=== PATIENT | female | born 1950 | race African-American/Black ===

== ENCOUNTER 2016-10-12 18:20 | Inpatient (IN) | payer MEDICARE, MEDICAID ==
[~2016-10-12] VITALS: Ht 166.4 cm; Wt 106.1 kg
[~2016-10-12 18:20] MED LIST: ATENOLOL; ATROVASTIN; GABA-531 PO; HYDR-519 PO; IBRANCE PO; LETROZOLE; NIFEDIPINE; VALIUM PO
[2016-10-12 20:00] VITALS: BP_SYST 108; BP_DIAS 50; BP_DIAS 65
[2016-10-12] MEDS ORDERED: MAGNESIUM/ALUMINUM HYDROXIDE/SIMETHICONE 30ML UDC PO PRN (21:15)
[2016-10-12] MEDS ORDERED: ACETAMINOPHEN 650MG/20.3ML UDC PO PRN (21:15)
[2016-10-12] MEDS ORDERED: IPRATROPIUM/ALBUTEROL 0.5-3(2.5)MG/3ML NEB HHN PRN (21:15)
[2016-10-12] MEDS ORDERED: NA PHOS,M-B/NA PHOS,DI-BA ENEMA 118ML PR PRN (21:15)
[2016-10-12] MEDS ORDERED: BISACODYL 5MG TABLET PO PRN (21:15)
[2016-10-12] MEDS ORDERED: CLONIDINE 0.1MG TABLET PO PRN (21:15)
[2016-10-12] MEDS ORDERED: DIPHENHYDRAMINE 25MG CAPSULE PO PRN (21:15)
[2016-10-12] MEDS ORDERED: GUAIFENESIN 200MG/10ML SUGAR FREE UDC PO PRN (21:15)
[2016-10-12] MEDS ORDERED: ONDANSETRON HCL 4MG TABLET PO PRN (21:15)
[2016-10-12] MEDS: GABAPENTIN 300MG CAPSULE PO SCH (23:16)
[2016-10-12] MEDS: ALPRAZOLAM 0.5 MG TABLET PO PRN (23:16)
[2016-10-13] VITALS: BP 110/68
[2016-10-13] MEDS: GABAPENTIN 300MG CAPSULE PO SCH ×3 (05:42→21:43)
[2016-10-13 08:00] VITALS: BP 107/70
[2016-10-13] MEDS: ASPIRIN 81MG EC TABLET PO SCH (08:29)
[2016-10-13] MEDS: DOCUSATE SODIUM 250MG CAPSULE PO SCH (08:29)
[2016-10-13] MEDS: MORPHINE SULFATE 30MG TABLET SR PO SCH ×2 (08:30→21:01)
[2016-10-13] MEDS: NIFEDIPINE XL 90MG TAB PO SCH (08:30)
[2016-10-13] MEDS: LETROZOLE 2.5MG XX SCH (08:31)
[2016-10-13] MEDS: IBRANCE XX SCH (08:31)
[2016-10-13 16:04] LABS: BASOPHILS % 0.2 % (0.0-2.0); EOSINOPHILS % 13.3 % (0.0-5.0); HEMOGLOBIN. 10.7 g/dL (12.0-16.0); LYMPHOCYTES % 27.8 % (20.0-50.0); MEAN CORPUSCULAR HEMOGLOBIN 32.7 pg (28.0-32.0); MEAN CORPUSCULAR VOLUME 98.2 fL (81.0-99.0); MEAN PLATELET VOLUME 8.3 fl (7.4-10.4); MONOCYTES % 7.1 % (2.0-8.0); NEUTROPHILS % 51.6 % (40.0-76.0); PLATELET 328 x1000/uL (130-400); RED BLOOD CELL COUNT 3.26 mill/uL (4.2-5.4); RED CELL DISTRIBUTION WIDTH 17.5 % (11.6-14.6)
[2016-10-13 16:08] LABS: PROTHROMBIN TIME 10.7 sec (9.4-11.6)
[2016-10-13 16:30] LABS: CARBON DIOXIDE 25 mEq/L (21-32); CHLORIDE 105 mEq/L (98-107)
[2016-10-13 20:00] VITALS: BP 133/55
[2016-10-13] MEDS: IPRATROPIUM/ALBUTEROL 0.5-3(2.5)MG/3ML NEB HHN SCH (20:41)
[2016-10-13] MEDS: ENOXAPARIN 30MG/0.3ML SYR SUBCUT SCH (21:02)
[2016-10-14] MEDS: IPRATROPIUM/ALBUTEROL 0.5-3(2.5)MG/3ML NEB HHN SCH ×4 (02:25→20:50)
[2016-10-14] MEDS: GABAPENTIN 300MG CAPSULE PO SCH ×3 (05:32→21:19)
[2016-10-14 06:13] LABS: MEAN CORPUSCULAR HEMOGLOBIN 32.7 pg (28.0-32.0); MEAN CORPUSCULAR VOLUME 98.6 fL (81.0-99.0); MEAN PLATELET VOLUME 8.1 fl (7.4-10.4); PLATELET 343 x1000/uL (130-400); RED BLOOD CELL COUNT 3.35 mill/uL (4.2-5.4)
[2016-10-14 06:16] LABS: CHLORIDE 106 mEq/L (98-107)
[2016-10-14 06:27] LABS: VITAMIN B12 SERUM 418 pg/mL (211-911)
[2016-10-14 06:30] LABS: CARBON DIOXIDE 24 mEq/L (21-32)
[2016-10-14 08:00] VITALS: BP 95/49
[2016-10-14 08:20] VITALS: BP 147/65
[2016-10-14] MEDS: DOCUSATE SODIUM 250MG CAPSULE PO SCH (08:22)
[2016-10-14] MEDS: ENOXAPARIN 30MG/0.3ML SYR SUBCUT SCH ×2 (08:23→21:16)
[2016-10-14] MEDS: ASPIRIN 81MG EC TABLET PO SCH (08:23)
[2016-10-14] MEDS: MORPHINE SULFATE 30MG TABLET SR PO SCH ×2 (08:24→21:00)
[2016-10-14] MEDS: NIFEDIPINE XL 90MG TAB PO SCH (08:24)
[2016-10-14 10:38] LABS: PLATELET ESTIMATE NORMAL
[2016-10-14] MEDS: IBRANCE XX SCH (12:37)
[2016-10-14] MEDS: ALPRAZOLAM 0.5 MG TABLET PO PRN (12:45)
[2016-10-14] MEDS ORDERED: GABAPENTIN 100MG CAPSULE PO SCH (14:00)
[2016-10-14] MEDS: LETROZOLE 2.5MG XX SCH (16:35)
[2016-10-14 20:00] VITALS: BP 111/51
[2016-10-14] MEDS: MIRTAZAPINE 15MG TABLET PO SCH (21:15)
[2016-10-15] MEDS: IPRATROPIUM/ALBUTEROL 0.5-3(2.5)MG/3ML NEB HHN SCH ×4 (02:20→21:05)
[2016-10-15] MEDS ORDERED: ALPRAZOLAM 0.5 MG TABLET PO PRN (05:15)
[2016-10-15] MEDS: GABAPENTIN 300MG CAPSULE PO SCH ×3 (06:19→21:50)
[2016-10-15 08:00] VITALS: BP 102/42
[2016-10-15] MEDS: ASPIRIN 81MG EC TABLET PO SCH (08:30)
[2016-10-15] MEDS: DOCUSATE SODIUM 100MG CAPSULE PO PRN (08:30)
[2016-10-15] MEDS: ENOXAPARIN 30MG/0.3ML SYR SUBCUT SCH ×2 (08:31→20:44)
[2016-10-15] MEDS: MORPHINE SULFATE 30MG TABLET SR PO SCH ×2 (08:33→20:42)
[2016-10-15] MEDS: DOCUSATE SODIUM 250MG CAPSULE PO SCH (08:37)
[2016-10-15] MEDS: NIFEDIPINE XL 90MG TAB PO SCH (08:37)
[2016-10-15] MEDS: IBRANCE XX SCH (12:23)
[2016-10-15] MEDS ORDERED: TRAMADOL 50MG TABLET PO PRN (15:17)
[2016-10-15] MEDS: LETROZOLE 2.5MG XX SCH (17:29)
[2016-10-15 20:00] VITALS: BP 123/59
[2016-10-15] MEDS: MIRTAZAPINE 15MG TABLET PO SCH (20:41)
[2016-10-16] MEDS: IPRATROPIUM/ALBUTEROL 0.5-3(2.5)MG/3ML NEB HHN SCH ×3 (02:30→22:20)
[2016-10-16] MEDS: GABAPENTIN 300MG CAPSULE PO SCH ×3 (06:30→22:15)
[2016-10-16 08:00] VITALS: BP 133/69
[2016-10-16] MEDS: ASPIRIN 81MG EC TABLET PO SCH (09:17)
[2016-10-16] MEDS: DOCUSATE SODIUM 250MG CAPSULE PO SCH (09:17)
[2016-10-16] MEDS: NIFEDIPINE XL 90MG TAB PO SCH (09:18)
[2016-10-16] MEDS: ENOXAPARIN 30MG/0.3ML SYR SUBCUT SCH ×2 (09:19→20:16)
[2016-10-16] MEDS: MORPHINE SULFATE 30MG TABLET SR PO SCH ×2 (09:26→21:00)
[2016-10-16] MEDS: HYDROCODONE/ACETAMINOPHEN 5/325MG TABLET PO PRN ×2 (16:03→20:18)
[2016-10-16 20:00] VITALS: BP 142/58
[2016-10-16] MEDS: MIRTAZAPINE 15MG TABLET PO SCH (22:15)
[2016-10-17] MEDS: HYDROCODONE/ACETAMINOPHEN 5/325MG TABLET PO PRN ×4 (02:36→17:52)
[2016-10-17] MEDS: GABAPENTIN 300MG CAPSULE PO SCH ×3 (06:31→21:45)
[2016-10-17] MEDS: IPRATROPIUM/ALBUTEROL 0.5-3(2.5)MG/3ML NEB HHN SCH ×3 (07:56→19:58)
[2016-10-17 08:00] VITALS: BP 143/69
[2016-10-17] MEDS: ENOXAPARIN 30MG/0.3ML SYR SUBCUT SCH ×2 (09:28→21:47)
[2016-10-17] MEDS: ASPIRIN 81MG EC TABLET PO SCH (09:30)
[2016-10-17] MEDS: DOCUSATE SODIUM 250MG CAPSULE PO SCH (09:30)
[2016-10-17] MEDS: NIFEDIPINE XL 90MG TAB PO SCH (09:31)
[2016-10-17] MEDS: MORPHINE SULFATE 30MG TABLET SR PO SCH ×2 (09:31→21:46)
[2016-10-17] MEDS: IBRANCE XX SCH (12:39)
[2016-10-17] MEDS ORDERED: ALPRAZOLAM 0.5 MG TABLET PO PRN (17:45)
[2016-10-17 20:00] VITALS: BP 114/55
[2016-10-17] MEDS: MIRTAZAPINE 15MG TABLET PO SCH (21:45)
[2016-10-18] MEDS: IPRATROPIUM/ALBUTEROL 0.5-3(2.5)MG/3ML NEB HHN SCH ×4 (01:49→19:41)
[2016-10-18] MEDS: GABAPENTIN 300MG CAPSULE PO SCH ×3 (06:04→22:32)
[2016-10-18 07:29] VITALS: BP 120/52
[2016-10-18] MEDS: NIFEDIPINE XL 90MG TAB PO SCH (08:26)
[2016-10-18] MEDS: ASPIRIN 81MG EC TABLET PO SCH (08:26)
[2016-10-18] MEDS: DOCUSATE SODIUM 250MG CAPSULE PO SCH (08:26)
[2016-10-18] MEDS: ENOXAPARIN 30MG/0.3ML SYR SUBCUT SCH ×2 (08:26→22:33)
[2016-10-18] MEDS: MORPHINE SULFATE 30MG TABLET SR PO SCH (08:28)
[2016-10-18] MEDS: IBRANCE XX SCH (12:36)
[2016-10-18 14:00] VITALS: BP 104/54
[2016-10-18] MEDS: HYDROCODONE/ACETAMINOPHEN 5/325MG TABLET PO PRN ×2 (14:08→18:21)
[2016-10-18] MEDS: LETROZOLE 2.5MG XX SCH (17:23)
[2016-10-18 18:15] VITALS: BP 99/42
[2016-10-18 19:00] VITALS: BP 92/48
[2016-10-18] MEDS: MIRTAZAPINE 15MG TABLET PO SCH (22:28)
[2016-10-19] MEDS: MORPHINE SULFATE 30MG TABLET SR PO SCH ×3 (00:51→21:00)
[2016-10-19] MEDS: IPRATROPIUM/ALBUTEROL 0.5-3(2.5)MG/3ML NEB HHN SCH ×4 (01:32→21:13)
[2016-10-19] MEDS: HYDROCODONE/ACETAMINOPHEN 5/325MG TABLET PO PRN ×2 (03:23→17:53)
[2016-10-19] MEDS: GABAPENTIN 300MG CAPSULE PO SCH ×3 (06:06→21:51)
[2016-10-19 06:46] LABS: HEMATOCRIT 31.6 % (36.0-48.0); HEMOGLOBIN 10.4 g/dL (12.0-16.0); MEAN CORPUSCULAR HEMOGLOBIN 32.5 pg (28.0-32.0); MEAN CORPUSCULAR VOLUME 98.4 fL (81.0-99.0); PLATELET 260 x1000/uL (130-400); RED BLOOD CELL COUNT 3.21 mill/uL (4.2-5.4); RED CELL DISTRIBUTION WIDTH 17.4 % (11.6-14.6)
[2016-10-19 08:00] VITALS: BP 149/73
[2016-10-19] MEDS: NIFEDIPINE XL 90MG TAB PO SCH (09:35)
[2016-10-19] MEDS: DOCUSATE SODIUM 100MG CAPSULE PO PRN (09:35)
[2016-10-19] MEDS: ENOXAPARIN 30MG/0.3ML SYR SUBCUT SCH ×2 (09:36→21:51)
[2016-10-19] MEDS: ASPIRIN 81MG EC TABLET PO SCH (09:37)
[2016-10-19] MEDS: DOCUSATE SODIUM 250MG CAPSULE PO SCH (09:43)
[2016-10-19] MEDS: LIDOCAINE 5% PATCH TOP SCH (14:02)
[2016-10-19] MEDS: IBRANCE XX SCH (14:03)
[2016-10-19] MEDS: LETROZOLE 2.5MG XX SCH (19:19)
[2016-10-19 20:00] VITALS: BP 115/45
[2016-10-19] MEDS: MIRTAZAPINE 15MG TABLET PO SCH (21:51)
[2016-10-20] MEDS: IPRATROPIUM/ALBUTEROL 0.5-3(2.5)MG/3ML NEB HHN SCH ×4 (01:40→20:36)
[2016-10-20] MEDS: HYDROCODONE/ACETAMINOPHEN 5/325MG TABLET PO PRN ×3 (02:07→19:17)
[2016-10-20] MEDS: GABAPENTIN 300MG CAPSULE PO SCH ×3 (06:03→21:36)
[2016-10-20 07:09] LABS: BASOPHILS % 2.1 % (0.0-2.0); EOSINOPHILS % 12.9 % (0.0-5.0); HEMATOCRIT. 31.9 % (36.0-48.0); HEMOGLOBIN. 10.7 g/dL (12.0-16.0); LYMPHOCYTES % 31.5 % (20.0-50.0); MEAN CORPUSCULAR HEMOGLOBIN 32.9 pg (28.0-32.0); MEAN CORPUSCULAR VOLUME 98.4 fL (81.0-99.0); MEAN PLATELET VOLUME 7.8 fl (7.4-10.4); MONOCYTES % 10.7 % (2.0-8.0); NEUTROPHILS % 42.8 % (40.0-76.0); PLATELET 261 x1000/uL (130-400); RED BLOOD CELL COUNT 3.25 mill/uL (4.2-5.4); RED CELL DISTRIBUTION WIDTH 17.6 % (11.6-14.6)
[2016-10-20 07:23] LABS: CARBON DIOXIDE 29 mEq/L (21-32); CHLORIDE 106 mEq/L (98-107); TOTAL IRON BINDING CAPACITY 262 ug/dL (250-450)
[2016-10-20 08:00] VITALS: BP 124/54
[2016-10-20 08:15] LABS: FOLIC ACID (FOLATE) SERUM 17.2 ng/mL (>5.38)
[2016-10-20] MEDS: DOCUSATE SODIUM 250MG CAPSULE PO SCH (09:00)
[2016-10-20] MEDS: ENOXAPARIN 30MG/0.3ML SYR SUBCUT SCH ×2 (09:22→21:36)
[2016-10-20] MEDS: ASPIRIN 81MG EC TABLET PO SCH (09:23)
[2016-10-20] MEDS: DOCUSATE SODIUM 100MG CAPSULE PO PRN ×2 (09:23→09:24)
[2016-10-20] MEDS: MORPHINE SULFATE 30MG TABLET SR PO SCH ×2 (09:23→21:38)
[2016-10-20] MEDS: NIFEDIPINE XL 90MG TAB PO SCH (09:23)
[2016-10-20] MEDS: LIDOCAINE 5% PATCH TOP SCH (09:23)
[2016-10-20] MEDS: IBRANCE XX SCH (12:05)
[2016-10-20] MEDS: CYANOCOBALAMIN 1000MCG/ML VIAL IM SCH (13:04)
[2016-10-20] MEDS: LETROZOLE 2.5MG XX SCH (17:28)
[2016-10-20 20:00] VITALS: BP 120/58
[2016-10-20] MEDS: MIRTAZAPINE 15MG TABLET PO SCH (21:36)
[2016-10-21] MEDS: HYDROCODONE/ACETAMINOPHEN 5/325MG TABLET PO PRN (01:53)
[2016-10-21] MEDS: IPRATROPIUM/ALBUTEROL 0.5-3(2.5)MG/3ML NEB HHN SCH ×3 (02:58→13:50)
[2016-10-21] MEDS: GABAPENTIN 300MG CAPSULE PO SCH ×2 (05:57→13:29)
[2016-10-21 08:00] VITALS: BP 129/73
[2016-10-21] MEDS: CYANOCOBALAMIN 1000MCG/ML VIAL IM SCH (09:31)
[2016-10-21] MEDS: ASPIRIN 81MG EC TABLET PO SCH (09:31)
[2016-10-21] MEDS: DOCUSATE SODIUM 250MG CAPSULE PO SCH (09:31)
[2016-10-21] MEDS: MORPHINE SULFATE 30MG TABLET SR PO SCH (09:31)
[2016-10-21] MEDS: NIFEDIPINE XL 90MG TAB PO SCH (09:32)
[2016-10-21] MEDS: ENOXAPARIN 30MG/0.3ML SYR SUBCUT SCH (09:33)
[2016-10-21] MEDS: LIDOCAINE 5% PATCH TOP SCH (09:57)
[2016-10-21] MEDS: IBRANCE XX SCH (11:38)
[2016-10-21 12:05] VITALS: BP 129/73
== END 2016-10-21 14:05 | disposition home health service (06) | DRG 552 ==
PROVIDERS: ADMIT Psychiatry & Neurology Neurology; ATTEND Hospitalist
DX: M47.27 Other spondylosis with radiculopathy, lumbosacral region (principal); G95.89 Other specified diseases of spinal cord; C79.51 Secondary malignant neoplasm of bone; D68.59 Other primary thrombophilia; E66.01 Morbid (severe) obesity due to excess calories; C50.919 Malignant neoplasm of unspecified site of unspecified female breast; G62.9 Polyneuropathy, unspecified; I10 Essential (primary) hypertension; D64.9 Anemia, unspecified; I48.91 Unspecified atrial fibrillation; J44.9 Chronic obstructive pulmonary disease, unspecified; F41.9 Anxiety disorder, unspecified; J30.9 Allergic rhinitis, unspecified; K21.9 Gastro-esophageal reflux disease without esophagitis; K58.9 Irritable bowel syndrome, unspecified; M51.26 Other intervertebral disc displacement, lumbar region; M79.7 Fibromyalgia; M81.0 Age-related osteoporosis without current pathological fracture; M48.06 Spinal stenosis, lumbar region; M47.816 Spondylosis without myelopathy or radiculopathy, lumbar region; K59.00 Constipation, unspecified; R26.0 Ataxic gait; F31.9 Bipolar disorder, unspecified; F06.31 Mood disorder due to known physiological condition with depressive features; F17.210 Nicotine dependence, cigarettes, uncomplicated; R26.9 Unspecified abnormalities of gait and mobility; Z90.10 Acquired absence of unspecified breast and nipple; Z68.38 Body mass index [BMI] 38.0-38.9, adult
CPT/HCPCS: 36415; 80048; 80053; 82607; 82728; 82746; 83540; 83550; 84443; 85025; 85027; 85610; 92523; 93970; 94640; 97110; 97112; 97116; 97163; 97167; 97530; 97532; 97535; A6261; J1650; J3420; J7620

== ENCOUNTER 2016-11-03 14:24 | Emergency (ER) | payer MEDICARE, MEDICAID ==
[~2016-11-03] VITALS: Ht 165.1 cm; Wt 90.0 kg
[~2016-11-03 14:24] MED LIST changes: -ATENOLOL; -ATROVASTIN; -HYDR-519 PO; +IOHEXOL-300 100 ML BOTTLE ONE; -NIFEDIPINE; +SODIUM CHLORIDE 0.9% 10ML VIAL ONE; -VALIUM PO
[2016-11-03] MEDS ORDERED: SODIUM CHLORIDE 0.9% 1,000 ML IV ONE (15:55)
[2016-11-03 16:36] LABS: HEMATOCRIT. 41.8 % (36.0-48.0); HEMOGLOBIN. 13.9 g/dL (12.0-16.0); MEAN CORPUSCULAR HEMOGLOBIN 32.8 pg (28.0-32.0); MEAN CORPUSCULAR VOLUME 98.6 fL (81.0-99.0); PLATELET 434 x1000/uL (130-400); RED BLOOD CELL COUNT 4.24 mill/uL (4.2-5.4); RED CELL DISTRIBUTION WIDTH 16.3 % (11.6-14.6)
[2016-11-03 16:39] LABS: CHLORIDE 100 mEq/L (98-107)
[2016-11-03 16:40] LABS: INR 1.1; PROTHROMBIN TIME 11.1 sec (9.4-11.6)
[2016-11-03 16:42] LABS: CARBON DIOXIDE 25 mEq/L (21-32)
[2016-11-03 17:19] LABS: PLATELET ESTIMATE INCREASED
[2016-11-03 18:29] LABS: CLARITY URINE CLEAR (CLEAR); COLOR URINE YELLOW (YELLOW); GLUCOSE URINE NEGATIVE (NEGATIVE); KETONES URINE NEGATIVE (NEGATIVE); LEUKOCYTE ESTERASE URINE TRACE (NEGATIVE); NITRITE URINE NEGATIVE (NEGATIVE); OCCULT BLOOD URINE TRACE (NEGATIVE); PH URINE 7.5 (4.5-8.0); PROTEIN URINE 2+ (NEGATIVE); UROBILINOGEN URINE 0.2 E.U./dL (0.2-1.0)
[2016-11-03 20:12] VITALS: BP 153/94
== END 2016-11-03 20:44 | disposition home or self-care (01) ==
LOC: ER 14:24
DX: R11.2 Nausea with vomiting, unspecified (principal); R19.7 Diarrhea, unspecified; I10 Essential (primary) hypertension; M79.89 Other specified soft tissue disorders
CPT/HCPCS: 36415; 74177; 80053; 81001; 83690; 85025; 85610; 99285; A4216; Q9967; J7030

== ENCOUNTER 2017-01-05 12:28 | Emergency (ER) | payer MEDICARE, MEDICAID ==
[~2017-01-05] VITALS: Ht 165.1 cm; Wt 89.0 kg
[~2017-01-05 12:28] MED LIST changes: -IOHEXOL-300 100 ML BOTTLE ONE; -SODIUM CHLORIDE 0.9% 10ML VIAL ONE
[2017-01-05 12:30] VITALS: BP 102/60
== END 2017-01-05 13:42 | disposition home or self-care (01) ==
LOC: ER 12:52
DX: S80.01XA Contusion of right knee, initial encounter (principal); S80.02XA Contusion of left knee, initial encounter; R60.9 Edema, unspecified; F17.200 Nicotine dependence, unspecified, uncomplicated; Z85.3 Personal history of malignant neoplasm of breast; Z90.10 Acquired absence of unspecified breast and nipple; W03.XXXA Other fall on same level due to collision with another person, initial encounter; Y93.89 Activity, other specified; Y92.89 Other specified places as the place of occurrence of the external cause; Y99.8 Other external cause status
CPT/HCPCS: 99281

== ENCOUNTER 2017-12-18 21:09 | Inpatient (IN) | payer MEDICARE, MEDICAID ==
[~2017-12-18] VITALS: Ht 165.1 cm; Wt 93.0 kg
[~2017-12-18 21:09] MED LIST changes: +ASA5EC PO; +ATEN-42 PO; +ATOR40TA70 PO; -GABA-531 PO; +GABA300S PO; -IBRANCE PO; +LETR2.5T6 PO; -LETROZOLE; +NIFE30TA94 PO; +OLAN20TA16 PO; +PALB75CA PO
[2017-12-18] MEDS ORDERED: SODIUM CHLORIDE 0.9% 1,000 ML IV ONE (22:02)
[2017-12-18 22:35] LABS: BG BASE EXCESS -2.8 mmol/L (-2.0-2.0); BG CARBOXYHEMOGLOBIN 3.6 % (0.5-1.5); BG DEOXYHEMOGLOBIN 4.2 % (0.0-5.0); BG FRACTION INSPIRED OXYGEN 28; BG HCO3 ACT 21.9 mmol/L (22.0-26.0); BG METHEMOGLOBIN 0.3 % (0.0-1.5); BG OXYGEN SATURATION 95.6 % (92.0-98.5); BG OXYHEMOGLOBIN 91.9 % (94.0-97.0); BG PCO2 37.6 mmHg (35.0-45.0); BG PH 7.383 (7.350-7.450); BG PO2 83.5 mmHg (75.0-100.0); BG SAMPLE SITE RIGHT BRACHIAL; BG TOTAL HEMOGLOBIN 11.9 g/dL (12.0-18.0); BG VENT MODE NASAL CANNULA
[2017-12-19 00:26] LABS: PARTIAL THROMBOPLASTIN TIME 20.6 sec (23.4-31.0); PROTHROMBIN TIME 10.2 sec (9.1-11.1)
[2017-12-19 00:32] LABS: CHLORIDE 109 mEq/L (98-107)
[2017-12-19 00:39] LABS: ETHANOL BLOOD < 10 mg/dL
[2017-12-19 01:01] LABS: CLARITY URINE CLEAR (CLEAR); COLOR URINE YELLOW (YELLOW); KETONES URINE NEGATIVE (NEGATIVE); LEUKOCYTE ESTERASE URINE TRACE (NEGATIVE); NITRITE URINE NEGATIVE (NEGATIVE); OCCULT BLOOD URINE NEGATIVE (NEGATIVE); PH URINE 6.5 (4.5-8.0); PROTEIN URINE 1+ (NEGATIVE); SPECIFIC GRAVITY URINE 1.016 (1.005-1.030)
[2017-12-19 01:22] LABS: AMMONIA 66 uMol/L (<32)
[2017-12-19 01:23] LABS: HEMATOCRIT. 35.2 % (36.0-48.0); HEMOGLOBIN. 11.6 g/dL (12.0-16.0); MEAN CORPUSCULAR HEMOGLOBIN 31.6 pg (28.0-32.0); MEAN CORPUSCULAR VOLUME 95.9 fL (81.0-99.0); RED BLOOD CELL COUNT 3.67 mill/uL (4.2-5.4); RED CELL DISTRIBUTION WIDTH 16.3 % (11.6-14.6)
[2017-12-19 01:30] LABS: *AMPHETAMINES SCREEN URINE NEGATIVE (NEGATIVE); *BARBITURATES SCREEN URINE NEGATIVE (NEGATIVE); *BENZODIAZEPINES SCREEN URINE PRESUMTIVE POSITIVE (NEGATIVE); *COCAINE SCREEN URINE NEGATIVE (NEGATIVE)
[2017-12-19 01:31] LABS: CANNABINOID URINE SCREEN NEGATIVE (NEGATIVE); METHADONE URINE SCREEN NEGATIVE (NEGATIVE); OPIATES URINE SCREEN PRESUMTIVE POSITIVE (NEGATIVE); PHENCYCLIDINE URINE SCREEN NEGATIVE (NEGATIVE)
[2017-12-19 02:58] LABS: MEAN PLATELET VOLUME 10.7 fl (7.4-10.4); PLATELET 240 x1000/uL (130-400)
[2017-12-19 03:02] LABS: PLATELET ESTIMATE NORMAL
[2017-12-19] MEDS ORDERED: LACTULOSE 20G/30ML UDC PO ONE (04:45)
[2017-12-19] MEDS ORDERED: DIAZ2TAB3 PO (09:50)
[2017-12-19] MEDS ORDERED: HYDR-4067 PO (09:51)
[2017-12-19 10:08] VITALS: BP 139/66
[2017-12-19] MEDS ORDERED: MORPHINE SULFATE 4 MG/ML CPJ (NOT FOR IM USE) IV PRN ×2 (11:30→19:04)
[2017-12-19] MEDS ORDERED: ONDANSETRON HCL 4MG/2ML INJ IV PRN (11:30)
[2017-12-19] MEDS ORDERED: CLONIDINE 0.1MG TABLET PO PRN (11:30)
[2017-12-19 12:00] VITALS: BP 154/72
[2017-12-19] MEDS ORDERED: VANCOMYCIN 1500MG in DEXTROSE 5% WATER 250ML IV NR (13:00)
[2017-12-19] MEDS ORDERED: IPRATROPIUM/ALBUTEROL 0.5-3(2.5)MG/3ML NEB HHN PRN (13:15)
[2017-12-19] MEDS: IPRATROPIUM/ALBUTEROL 0.5-3(2.5)MG/3ML NEB HHN SCH ×2 (13:54→21:02)
[2017-12-19] MEDS: PIPERACILLIN/TAZ 3.375G PREMIX 50 ML IV SCH ×2 (14:12→18:49)
[2017-12-19 16:00] VITALS: BP 132/79
[2017-12-19] MEDS: INSULIN LISPRO 100 UNITS/ML SUBCUT SCH ×2 (18:10→21:00)
[2017-12-19] MEDS ORDERED: DEXTROSE 50% WATER 50ML SYRINGE IV PRN (18:15)
[2017-12-19] MEDS ORDERED: HYDRALAZINE 20MG/ML VIAL IV PRN (18:30)
[2017-12-19 20:00] VITALS: BP 143/72
[2017-12-19] MEDS ORDERED: LACTULOSE 20G/30ML UDC PO SCH (21:00)
[2017-12-19] MEDS: BLOOD SUGAR DIAGNOSTIC STRIP TEST SCH (21:00)
[2017-12-19] MEDS: GABAPENTIN 300MG CAPSULE PO SCH (21:51)
[2017-12-19] MEDS: AMLODIPINE 5MG TABLET PO SCH (21:56)
[2017-12-19] MEDS: HYDROCODONE/ACETAMINOPHEN 5/325MG TABLET PO PRN (21:58)
[2017-12-20] VITALS: BP 161/64
[2017-12-20] MEDS: PIPERACILLIN/TAZ 3.375G PREMIX 50 ML IV SCH ×4 (00:30→08:06)
[2017-12-20] MEDS: IPRATROPIUM/ALBUTEROL 0.5-3(2.5)MG/3ML NEB HHN SCH ×2 (01:55→08:59)
[2017-12-20 04:00] VITALS: BP 139/61
[2017-12-20] MEDS: GABAPENTIN 300MG CAPSULE PO SCH ×2 (06:37→15:07)
[2017-12-20] MEDS: HYDROCODONE/ACETAMINOPHEN 5/325MG TABLET PO PRN ×2 (06:38→15:08)
[2017-12-20] MEDS: BLOOD SUGAR DIAGNOSTIC STRIP TEST SCH ×2 (06:41→12:11)
[2017-12-20] MEDS: INSULIN LISPRO 100 UNITS/ML SUBCUT SCH ×2 (06:42→12:11)
[2017-12-20 06:47] LABS: BASOPHILS % 0.4 % (0.0-2.0); EOSINOPHILS % 2.3 % (0.0-5.0); HEMATOCRIT. 37.4 % (36.0-48.0); HEMOGLOBIN. 12.4 g/dL (12.0-16.0); LYMPHOCYTES % 17.1 % (20.0-50.0); MEAN CORPUSCULAR HEMOGLOBIN 31.6 pg (28.0-32.0); MEAN CORPUSCULAR VOLUME 95.4 fL (81.0-99.0); MEAN PLATELET VOLUME 9.3 fl (7.4-10.4); MONOCYTES % 10.1 % (2.0-8.0); NEUTROPHILS % 70.1 % (40.0-76.0); PLATELET 320 x1000/uL (130-400); RED BLOOD CELL COUNT 3.92 mill/uL (4.2-5.4); RED CELL DISTRIBUTION WIDTH 16.1 % (11.6-14.6)
[2017-12-20] MEDS ORDERED: VANCOMYCIN 1250MG in DEXTROSE 5% WATER 250ML IV SCH ×2 (07:00→18:00)
[2017-12-20 07:48] LABS: CHLORIDE 109 mEq/L (98-107)
[2017-12-20 08:00] VITALS: BP 130/66
[2017-12-20] MEDS: AMLODIPINE 5MG TABLET PO SCH (09:00)
[2017-12-20 12:00] VITALS: BP 144/86
[2017-12-20 16:00] VITALS: BP 141/81
[2017-12-20 16:22] VITALS: BP 140/75
== END 2017-12-20 16:52 | disposition home or self-care (01) | DRG 917 ==
LOC: ER 22:28 → 7WST 12-19 03:17 → ENRESERV 12-19 08:14
PROVIDERS: ADMIT Internal Medicine; ATTEND Internal Medicine
DX: T40.2X1A Poisoning by other opioids, accidental (unintentional), initial encounter (principal); G93.41 Metabolic encephalopathy; E43 Unspecified severe protein-calorie malnutrition; C79.51 Secondary malignant neoplasm of bone; D68.59 Other primary thrombophilia; E72.20 Disorder of urea cycle metabolism, unspecified; C78.00 Secondary malignant neoplasm of unspecified lung; T42.4X1A Poisoning by benzodiazepines, accidental (unintentional), initial encounter; D64.9 Anemia, unspecified; E11.40 Type 2 diabetes mellitus with diabetic neuropathy, unspecified; E66.01 Morbid (severe) obesity due to excess calories; E78.00 Pure hypercholesterolemia, unspecified; E78.5 Hyperlipidemia, unspecified; F17.210 Nicotine dependence, cigarettes, uncomplicated; E87.8 Other disorders of electrolyte and fluid balance, not elsewhere classified; C50.912 Malignant neoplasm of unspecified site of left female breast; J44.9 Chronic obstructive pulmonary disease, unspecified; F31.9 Bipolar disorder, unspecified; F41.9 Anxiety disorder, unspecified; I11.9 Hypertensive heart disease without heart failure; I48.91 Unspecified atrial fibrillation; Z68.34 Body mass index [BMI] 34.0-34.9, adult; Y92.89 Other specified places as the place of occurrence of the external cause; Z90.12 Acquired absence of left breast and nipple; Z79.82 Long term (current) use of aspirin; Z79.899 Other long term (current) drug therapy; Z92.21 Personal history of antineoplastic chemotherapy
CPT/HCPCS: 36415; 36600; 71045; 76700; 80048; 80305; 80307; 80329; 82140; 82375; 82805; 82962; 83036; 83880; 84145; 84484; 93005; 93970; 94640; 97162; 99285; G0482; J2543; J3370; J7030; J7050; J7060; J7620

== ENCOUNTER 2018-04-15 11:44 | Emergency (ER) | payer MEDICARE, MEDICAID ==
[~2018-04-15] VITALS: Ht 162.6 cm; Wt 64.0 kg
[~2018-04-15 11:44] MED LIST changes: +DIAZ2TAB3 PO; +HYDR-4067 PO; -PALB75CA PO
[2018-04-15] MEDS ORDERED: OXYCODONE HCL 10MG TABLET SR 12HR PO ONE (12:30)
[2018-04-15 13:22] LABS: CHLORIDE 111 mEq/L (98-107)
[2018-04-15 13:37] LABS: HEMATOCRIT. 41.6 % (36.0-48.0); HEMOGLOBIN. 13.3 g/dL (12.0-16.0); MEAN CORPUSCULAR HEMOGLOBIN 29.3 pg (28.0-32.0); MEAN CORPUSCULAR VOLUME 91.9 fL (81.0-99.0); MEAN PLATELET VOLUME 9.5 fl (7.4-10.4); PLATELET 350 x1000/uL (130-400); RED BLOOD CELL COUNT 4.52 mill/uL (4.2-5.4); RED CELL DISTRIBUTION WIDTH 20.3 % (11.6-14.6)
[2018-04-15 14:03] LABS: PLATELET ESTIMATE NORMAL
[2018-04-15 14:54] LABS: CLARITY URINE CLEAR (CLEAR); COLOR URINE YELLOW (YELLOW); KETONES URINE NEGATIVE (NEGATIVE); LEUKOCYTE ESTERASE URINE NEGATIVE (NEGATIVE); NITRITE URINE NEGATIVE (NEGATIVE); OCCULT BLOOD URINE NEGATIVE (NEGATIVE); PH URINE 6.5 (4.5-8.0); PROTEIN URINE 1+ (NEGATIVE); SPECIFIC GRAVITY URINE 1.018 (1.005-1.030); UROBILINOGEN URINE 0.2 E.U./dL (0.2-1.0)
[2018-04-15 17:45] VITALS: BP 170/78
== END 2018-04-15 17:45 | disposition left against medical advice (07) ==
LOC: ER 12:19 → CANRESERV 17:24 → ENRESERV 17:24 → ER 17:45 → CANBEDREQ 20:09
DX: R53.1 Weakness (principal); G89.3 Neoplasm related pain (acute) (chronic); M25.562 Pain in left knee; M25.561 Pain in right knee; F41.9 Anxiety disorder, unspecified; I10 Essential (primary) hypertension; E11.9 Type 2 diabetes mellitus without complications; E78.00 Pure hypercholesterolemia, unspecified; Z90.10 Acquired absence of unspecified breast and nipple; C50.919 Malignant neoplasm of unspecified site of unspecified female breast; C79.9 Secondary malignant neoplasm of unspecified site; Z92.21 Personal history of antineoplastic chemotherapy
CPT/HCPCS: 36415; 71045; 82962; 83880; 84484; 93005; 99284

== ENCOUNTER 2018-08-29 11:25 | Emergency (ER) | payer MEDICARE, MEDICAID ==
[~2018-08-29] VITALS: Ht 177.8 cm; Wt 91.0 kg
[~2018-08-29 11:25] MED LIST changes: -OLAN20TA16 PO; +OLAN20TA34 PO
[2018-08-29] MEDS ORDERED: KETOROLAC 30MG/ML VIAL IM ONE (12:45)
[2018-08-29] MEDS ORDERED: ONDANSETRON HCL 4MG/2ML INJ IM ONE (12:45)
[2018-08-29] MEDS ORDERED: OXYCODONE HCL/ACETAMINOPHEN 5/325MG TABLET PO ONE (12:45)
[2018-08-29 19:32] VITALS: BP 121/74
== END 2018-08-29 19:33 | disposition home or self-care (01) ==
LOC: ER 11:25
DX: E11.40 Type 2 diabetes mellitus with diabetic neuropathy, unspecified (principal); G89.29 Other chronic pain; M79.605 Pain in left leg; M79.604 Pain in right leg; I10 Essential (primary) hypertension; Z86.73 Personal history of transient ischemic attack (TIA), and cerebral infarction without residual deficits; Z85.3 Personal history of malignant neoplasm of breast; Z88.2 Allergy status to sulfonamides; Z79.899 Other long term (current) drug therapy
CPT/HCPCS: 96372; 99283; J1885; J2405

== ENCOUNTER 2019-02-02 13:32 | Inpatient (IN) | payer MEDICARE, MEDICAID ==
[~2019-02-02] VITALS: Ht 165.1 cm; Wt 83.9 kg
[~2019-02-02 13:32] MED LIST changes: -ASA5EC PO; +ASPI325T85 PO
[2019-02-02] MEDS ORDERED: ASPIRIN 81MG TABLET PO ONE (15:00)
[2019-02-02 15:21] LABS: BG BASE EXCESS 5.3 mmol/L (-2.0-2.0); BG DEOXYHEMOGLOBIN 7.9 % (0.0-5.0); BG FRACTION INSPIRED OXYGEN 21; BG HCO3 ACT 29.5 mmol/L (22.0-26.0); BG METHEMOGLOBIN 0.2 % (0.0-1.5); BG OXYGEN SATURATION 91.6 % (92.0-98.5); BG OXYHEMOGLOBIN 85.9 % (94.0-97.0); BG PCO2 41.7 mmHg (35.0-45.0); BG PH 7.467 (7.350-7.450); BG PO2 59.9 mmHg (75.0-100.0); BG SAMPLE SITE RIGHT RADIAL; BG TOTAL HEMOGLOBIN 13.4 g/dL (12.0-18.0); BG VENT MODE ROOM AIR
[2019-02-02 15:47] LABS: BASOPHILS % 0.2 % (0.0-2.0); EOSINOPHILS % 4.3 % (0.0-5.0); HEMATOCRIT. 40.3 % (36.0-48.0); HEMOGLOBIN. 13.1 g/dL (12.0-16.0); LYMPHOCYTES % 34.9 % (20.0-50.0); MEAN CORPUSCULAR HEMOGLOBIN 29.3 pg (28.0-32.0); MEAN CORPUSCULAR VOLUME 89.7 fL (81.0-99.0); MEAN PLATELET VOLUME 9.6 fl (7.4-10.4); MONOCYTES % 9.2 % (2.0-8.0); NEUTROPHILS % 51.4 % (40.0-76.0); PLATELET 338 x1000/uL (130-400); RED BLOOD CELL COUNT 4.49 mill/uL (4.2-5.4); RED CELL DISTRIBUTION WIDTH 16.6 % (11.6-14.6)
[2019-02-02 15:49] LABS: CHLORIDE 103 mEq/L (98-107)
[2019-02-02 15:53] LABS: ETHANOL BLOOD < 10 mg/dL; PARTIAL THROMBOPLASTIN TIME 28.5 sec (23.4-31.0); PROTHROMBIN TIME 10.5 sec (9.6-11.0)
[2019-02-02] MEDS ORDERED: KCL 20MEQ/100ML PREMIX 100 ML IV ONE (16:15)
[2019-02-02] MEDS ORDERED: CLONIDINE 0.1MG TABLET PO PRN (17:15)
[2019-02-02] MEDS ORDERED: IPRATROPIUM/ALBUTEROL 0.5-3(2.5)MG/3ML NEB HHN PRN (17:15)
[2019-02-02] MEDS ORDERED: MAGNESIUM/ALUMINUM HYDROXIDE/SIMETHICONE 30ML UDC PO PRN (17:15)
[2019-02-02] MEDS ORDERED: ONDANSETRON HCL 4MG/2ML INJ IV PRN (17:15)
[2019-02-02] MEDS ORDERED: ACETAMINOPHEN 325MG TABLET PO PRN (17:15)
[2019-02-02 17:39] LABS: BG BASE EXCESS 5.9 mmol/L (-2.0-2.0); BG CARBOXYHEMOGLOBIN 4.9 % (0.5-1.5); BG METHEMOGLOBIN 0.2 % (0.0-1.5); BG OXYGEN SATURATION 93.7 % (92.0-98.5); BG OXYHEMOGLOBIN 88.9 % (94.0-97.0); BG PCO2 41.6 mmHg (35.0-45.0); BG PH 7.476 (7.350-7.450); BG PO2 65.2 mmHg (75.0-100.0); BG SAMPLE SITE RIGHT BRACHIAL; BG TOTAL HEMOGLOBIN 12.9 g/dL (12.0-18.0); BG VENT MODE ROOM AIR
[2019-02-02 19:22] LABS: CLARITY URINE CLEAR (CLEAR); COLOR URINE YELLOW (YELLOW); KETONES URINE NEGATIVE (NEGATIVE); LEUKOCYTE ESTERASE URINE 2+ (NEGATIVE); NITRITE URINE NEGATIVE (NEGATIVE); OCCULT BLOOD URINE NEGATIVE (NEGATIVE); PH URINE >=9.0 (4.5-8.0); PROTEIN URINE 1+ (NEGATIVE); SPECIFIC GRAVITY URINE 1.021 (1.005-1.030)
[2019-02-02 19:34] LABS: *AMPHETAMINES SCREEN URINE NEGATIVE (NEGATIVE); *BARBITURATES SCREEN URINE NEGATIVE (NEGATIVE); *BENZODIAZEPINES SCREEN URINE PRESUMTIVE POSITIVE (NEGATIVE); *COCAINE SCREEN URINE NEGATIVE (NEGATIVE)
[2019-02-02 19:35] LABS: CANNABINOID URINE SCREEN NEGATIVE (NEGATIVE); METHADONE URINE SCREEN NEGATIVE (NEGATIVE); OPIATES URINE SCREEN NEGATIVE (NEGATIVE); PHENCYCLIDINE URINE SCREEN NEGATIVE (NEGATIVE)
[2019-02-02] MEDS ORDERED: ASPIRIN 81MG EC TABLET PO SCH (21:23)
[2019-02-02] MEDS: POTASSIUM CHLORIDE 20MEQ TABLET SR PO SCH ×2 (22:06→22:10)
[2019-02-02] MEDS: ATORVASTATIN CALCIUM 40MG TABLET PO SCH (22:08)
[2019-02-02] MEDS ORDERED: IOHEXOL-350 100 ML BOTTLE ONE (22:10)
[2019-02-03] MEDS ORDERED: ENOXAPARIN 100MG/ML SYR SUBCUT SCH
[2019-02-03] MEDS ORDERED: HYDROMORPHONE HCL/PF 2MG/ML CPJ IV SCH (00:30)
[2019-02-03 00:56] LABS: CREATINE KINASE MB FRACTION < 1.0 ng/mL (0.5-3.6)
[2019-02-03 04:39] VITALS: BP 159/75
[2019-02-03] MEDS ORDERED: MAGNESIUM 2 G PREMIX 50 ML IV SCH (06:00)
[2019-02-03] MEDS: SODIUM CHL 0.45% + KCL 20MEQ/L 1,000 ML IV SCH ×2 (08:00→19:20)
[2019-02-03] MEDS ORDERED: ENOXAPARIN 40MG/0.4ML SYR SUBCUT SCH (09:00)
[2019-02-03] MEDS: DOCUSATE SODIUM 250MG CAPSULE PO SCH (10:10)
[2019-02-03] MEDS: ATENOLOL 25MG TABLET PO SCH (10:11)
[2019-02-03] MEDS: GABAPENTIN SOLN 50MG/1ML UDC PO SCH ×2 (10:12→16:12)
[2019-02-03] MEDS: ASPIRIN 81MG EC TABLET PO SCH (10:14)
[2019-02-03] MEDS: LETROZOLE 2.5MG TABLET PO SCH (10:14)
[2019-02-03 10:33] LABS: BASOPHILS % 0.3 % (0.0-2.0); EOSINOPHILS % 4.6 % (0.0-5.0); HEMATOCRIT. 37.2 % (36.0-48.0); HEMOGLOBIN. 12.1 g/dL (12.0-16.0); LYMPHOCYTES % 39.7 % (20.0-50.0); MEAN CORPUSCULAR VOLUME 89.5 fL (81.0-99.0); MEAN PLATELET VOLUME 9.2 fl (7.4-10.4); MONOCYTES % 10.8 % (2.0-8.0); NEUTROPHILS % 44.6 % (40.0-76.0); PLATELET 330 x1000/uL (130-400); RED BLOOD CELL COUNT 4.16 mill/uL (4.2-5.4); RED CELL DISTRIBUTION WIDTH 16.7 % (11.6-14.6)
[2019-02-03 10:37] VITALS: BP 148/86
[2019-02-03 10:45] LABS: CHLORIDE 105 mEq/L (98-107)
[2019-02-03 10:58] LABS: LDL CHOLESTEROL 82 mg/dL (5-100)
[2019-02-03 10:59] LABS: HDL CHOLESTEROL 37 mg/dL (40-59)
[2019-02-03] MEDS ORDERED: NIFEDIPINE XL 30MG TAB PO NR (11:00)
[2019-02-03 11:01] LABS: CREATINE KINASE MB FRACTION < 1.0 ng/mL (0.5-3.6)
[2019-02-03 12:00] VITALS: BP 129/84
[2019-02-03 16:00] VITALS: BP 110/64
[2019-02-03] MEDS: POTASSIUM CHLORIDE 20MEQ TABLET SR PO SCH ×2 (16:11→22:00)
[2019-02-03 20:00] VITALS: BP 112/58
[2019-02-03] MEDS ORDERED: GABAPENTIN SOLN 50MG/1ML UDC PO SCH (21:00)
[2019-02-03] MEDS: OXYBUTYNIN CHLORIDE 5MG TABLET PO SCH (21:42)
[2019-02-03] MEDS: ATORVASTATIN CALCIUM 40MG TABLET PO SCH (21:42)
[2019-02-04] VITALS: BP 123/54
[2019-02-04] MEDS: HYDROCODONE/ACETAMINOPHEN 5/325MG TABLET PO PRN (02:28)
[2019-02-04 04:00] VITALS: BP 110/61
[2019-02-04] MEDS: POTASSIUM CHLORIDE 20MEQ TABLET SR PO SCH ×3 (05:48→21:48)
[2019-02-04] MEDS: HYDROMORPHONE HCL/PF 2MG/ML CPJ IV PRN ×3 (07:09→17:31)
[2019-02-04 07:36] LABS: BASOPHILS % 0.6 % (0.0-2.0); HEMATOCRIT. 38.4 % (36.0-48.0); HEMOGLOBIN. 12.1 g/dL (12.0-16.0); LYMPHOCYTES % 36.2 % (20.0-50.0); MEAN CORPUSCULAR HEMOGLOBIN 28.5 pg (28.0-32.0); MEAN CORPUSCULAR VOLUME 90.7 fL (81.0-99.0); MEAN PLATELET VOLUME 9.9 fl (7.4-10.4); MONOCYTES % 11.1 % (2.0-8.0); NEUTROPHILS % 45.1 % (40.0-76.0); PLATELET 323 x1000/uL (130-400); RED BLOOD CELL COUNT 4.24 mill/uL (4.2-5.4); RED CELL DISTRIBUTION WIDTH 17.2 % (11.6-14.6)
[2019-02-04 08:00] VITALS: BP 129/72
[2019-02-04 08:25] LABS: CHLORIDE 108 mEq/L (98-107)
[2019-02-04] MEDS: DOCUSATE SODIUM 250MG CAPSULE PO SCH (09:22)
[2019-02-04] MEDS: GABAPENTIN 400MG CAPSULE PO SCH ×3 (09:22→17:31)
[2019-02-04] MEDS: NIFEDIPINE XL 30MG TAB PO SCH (09:23)
[2019-02-04] MEDS: ASPIRIN 81MG EC TABLET PO SCH (09:23)
[2019-02-04] MEDS: APIXABAN 5 MG TABLET PO SCH ×2 (09:23→17:31)
[2019-02-04] MEDS: ATENOLOL 25MG TABLET PO SCH (09:23)
[2019-02-04] MEDS: OXYBUTYNIN CHLORIDE 5MG TABLET PO SCH (09:23)
[2019-02-04 12:00] VITALS: BP 115/68
[2019-02-04] MEDS: LETROZOLE 2.5MG TABLET PO SCH (12:56)
[2019-02-04] MEDS: IPRATROPIUM/ALBUTEROL 0.5-3(2.5)MG/3ML NEB HHN SCH ×3 (13:20→20:39)
[2019-02-04] MEDS: NICOTINE 14MG PATCH TD SCH (14:35)
[2019-02-04 16:06] VITALS: BP 122/70
[2019-02-04 20:00] VITALS: BP 103/51
[2019-02-04] MEDS: ATORVASTATIN CALCIUM 40MG TABLET PO SCH (21:48)
[2019-02-04] MEDS: SODIUM CHL 0.45% + KCL 20MEQ/L 1,000 ML IV SCH (21:50)
[2019-02-05] VITALS: BP 98/61
[2019-02-05 00:10] LABS: CLARITY URINE TURBID (CLEAR); COLOR URINE DARK YELLOW (YELLOW); KETONES URINE TRACE (NEGATIVE); LEUKOCYTE ESTERASE URINE 1+ (NEGATIVE); NITRITE URINE NEGATIVE (NEGATIVE); OCCULT BLOOD URINE TRACE (NEGATIVE); PH URINE 7.5 (4.5-8.0); PROTEIN URINE 1+ (NEGATIVE); SPECIFIC GRAVITY URINE 1.037 (1.005-1.030); UROBILINOGEN URINE 0.2 E.U./dL (0.2-1.0)
[2019-02-05] MEDS: IPRATROPIUM/ALBUTEROL 0.5-3(2.5)MG/3ML NEB HHN SCH ×2 (00:35→08:27)
[2019-02-05] MEDS: HYDROMORPHONE HCL/PF 2MG/ML CPJ IV PRN ×2 (03:28→08:37)
[2019-02-05 04:56] VITALS: BP 116/53
[2019-02-05] MEDS: POTASSIUM CHLORIDE 20MEQ TABLET SR PO SCH ×2 (05:35→14:00)
[2019-02-05 07:52] LABS: BASOPHILS % 1.1 % (0.0-2.0); EOSINOPHILS % 5.7 % (0.0-5.0); HEMOGLOBIN. 12.8 g/dL (12.0-16.0); MEAN CORPUSCULAR HEMOGLOBIN 29.1 pg (28.0-32.0); MEAN CORPUSCULAR VOLUME 90.8 fL (81.0-99.0); MEAN PLATELET VOLUME 10.2 fl (7.4-10.4); NEUTROPHILS % 54.2 % (40.0-76.0); PLATELET 286 x1000/uL (130-400); RED BLOOD CELL COUNT 4.41 mill/uL (4.2-5.4); RED CELL DISTRIBUTION WIDTH 16.8 % (11.6-14.6)
[2019-02-05 07:59] LABS: CHLORIDE 106 mEq/L (98-107)
[2019-02-05 08:00] VITALS: BP 117/67
[2019-02-05] MEDS: ASPIRIN 81MG EC TABLET PO SCH (08:34)
[2019-02-05] MEDS: NICOTINE 14MG PATCH TD SCH (08:34)
[2019-02-05] MEDS: DOCUSATE SODIUM 250MG CAPSULE PO SCH (08:35)
[2019-02-05] MEDS: APIXABAN 5 MG TABLET PO SCH (08:35)
[2019-02-05] MEDS: GABAPENTIN 400MG CAPSULE PO SCH ×2 (08:35→14:23)
[2019-02-05] MEDS: NIFEDIPINE XL 30MG TAB PO SCH (08:36)
[2019-02-05] MEDS ORDERED: GABA-533 MT (08:38)
[2019-02-05] MEDS ORDERED: APIX5TAB MT (08:38)
[2019-02-05] MEDS: LETROZOLE 2.5MG TABLET PO SCH (10:46)
[2019-02-05 12:00] VITALS: BP 118/70
[2019-02-05 12:43] VITALS: BP 118/70
[2019-02-05] MEDS: HYDROCODONE/ACETAMINOPHEN 5/325MG TABLET PO PRN (15:16)
[2019-02-05 16:00] VITALS: BP 116/67
== END 2019-02-05 16:20 | disposition home or self-care (01) | DRG 191 ==
LOC: ER 13:32 → EDBEDREQ 17:02 → ENRESERV 02-03 01:56 → 5WST 02-03 04:13
PROVIDERS: ADMIT Internal Medicine Geriatric Medicine; ATTEND Internal Medicine Geriatric Medicine
DX: J44.1 Chronic obstructive pulmonary disease with (acute) exacerbation (principal); N39.0 Urinary tract infection, site not specified; G89.4 Chronic pain syndrome; E87.6 Hypokalemia; E78.5 Hyperlipidemia, unspecified; I10 Essential (primary) hypertension; E66.9 Obesity, unspecified; M19.90 Unspecified osteoarthritis, unspecified site; E11.9 Type 2 diabetes mellitus without complications; Z96.659 Presence of unspecified artificial knee joint; I25.10 Atherosclerotic heart disease of native coronary artery without angina pectoris; Z68.30 Body mass index [BMI] 30.0-30.9, adult; Z85.3 Personal history of malignant neoplasm of breast; Z90.12 Acquired absence of left breast and nipple; Z86.711 Personal history of pulmonary embolism; Z99.3 Dependence on wheelchair; Z86.73 Personal history of transient ischemic attack (TIA), and cerebral infarction without residual deficits; C50.919 Malignant neoplasm of unspecified site of unspecified female breast; I45.9 Conduction disorder, unspecified; N32.81 Overactive bladder; Z79.01 Long term (current) use of anticoagulants; Z79.811 Long term (current) use of aromatase inhibitors; Z79.899 Other long term (current) drug therapy; Z88.2 Allergy status to sulfonamides
CPT/HCPCS: 36415; 36600; 71045; 71275; 80048; 80061; 80305; 80320; 81003; 82375; 82553; 82805; 83036; 83735; 83880; 84484; 85379; 86300; 93005; 93306; 93970; 97162; 97530; 99285; J1170; J1650; J2405; J3475; J3480; J7620; Q9967; G0480

== ENCOUNTER 2019-10-30 14:21 | Inpatient (IN) | payer MEDICARE, MEDICAID ==
[~2019-10-30] VITALS: Ht 166.4 cm; Wt 107.5 kg
[~2019-10-30 14:21] MED LIST changes: +APIX5TAB MT; -ASPI325T85 PO; -ATEN-42 PO; -DIAZ2TAB3 PO; +GABA-533 MT; -GABA300S PO; -HYDR-4067 PO; -LETR2.5T6 PO; +LETR2.5T7 PO; -NIFE30TA94 PO; -OLAN20TA34 PO
[2019-10-30] MEDS ORDERED: HYDROMORPHONE HCL/PF 2MG/ML CPJ IV ONE ×2 (15:30→20:15)
[2019-10-30 15:49] LABS: BASOPHILS % 1.7 % (0.0-2.0); HEMATOCRIT. 40.1 % (36.0-48.0); HEMOGLOBIN. 12.9 g/dL (12.0-16.0); LYMPHOCYTES % 31.2 % (20.0-50.0); MEAN CORPUSCULAR HEMOGLOBIN 29.2 pg (28.0-32.0); MEAN CORPUSCULAR VOLUME 90.9 fL (81.0-99.0); MEAN PLATELET VOLUME 9.4 fl (7.4-10.4); MONOCYTES % 10.8 % (2.0-8.0); NEUTROPHILS % 54.3 % (40.0-76.0); PLATELET 257 x1000/uL (130-400); RED BLOOD CELL COUNT 4.41 mill/uL (4.2-5.4); RED CELL DISTRIBUTION WIDTH 18.6 % (11.6-14.6)
[2019-10-30 15:55] LABS: PROTHROMBIN TIME 10.4 sec (9.6-11.0)
[2019-10-30 16:39] LABS: CHLORIDE 111 mEq/L (98-107)
[2019-10-30] MEDS ORDERED: GLYCERIN ADULT SUPPOSITORY PR ONE (18:45)
[2019-10-30] MEDS ORDERED: SODIUM CHLORIDE 0.9% 1,000 ML IV ONE (19:00)
[2019-10-30] MEDS ORDERED: SODIUM CHLORIDE 0.45% 1,000 ML IV SCH (20:03)
[2019-10-30] MEDS ORDERED: DOCUSATE SODIUM 100MG CAPSULE PO PRN ×2 (20:15→20:45)
[2019-10-30] MEDS ORDERED: ACETAMINOPHEN 325MG TABLET PO PRN ×2 (20:15→20:30)
[2019-10-30] MEDS ORDERED: CLONIDINE 0.1MG TABLET PO PRN ×2 (20:15→20:30)
[2019-10-30] MEDS ORDERED: NA PHOS,M-B/NA PHOS,DI-BA ENEMA 118ML PR PRN ×2 (20:15→20:45)
[2019-10-30] MEDS ORDERED: ENOXAPARIN 40MG/0.4ML SYR SUBCUT SCH (20:15)
[2019-10-30] MEDS ORDERED: LORAZEPAM 2MG/ML CPJ IV PRN ×2 (20:15→20:45)
[2019-10-30] MEDS ORDERED: HYDROCODONE/ACETAMINOPHEN 10/325MG TABLET PO PRN ×2 (20:15→20:45)
[2019-10-30] MEDS ORDERED: MAGNESIUM/ALUMINUM HYDROXIDE/SIMETHICONE 30ML UDC PO PRN ×2 (20:15→20:45)
[2019-10-30] MEDS ORDERED: ONDANSETRON HCL 4MG/2ML INJ IV PRN ×2 (20:15→20:45)
[2019-10-30] MEDS ORDERED: GUAIFENESIN 200MG/10ML SUGAR FREE UDC PO PRN ×2 (20:15→20:45)
[2019-10-30] MEDS ORDERED: DIPHENHYDRAMINE 50MG/ML VIAL IV PRN ×2 (20:15→20:45)
[2019-10-30] MEDS ORDERED: MORPHINE SULFATE 2 MG/ML CPJ (NOT FOR IM USE) IV PRN ×2 (20:15→20:45)
[2019-10-30] MEDS ORDERED: IPRATROPIUM/ALBUTEROL 0.5-3(2.5)MG/3ML NEB HHN PRN ×2 (20:15→20:45)
[2019-10-30] MEDS ORDERED: SODIUM CHLORIDE 0.45% 1000ML IV SCH (20:45)
[2019-10-30] MEDS: MAGNESIUM CITRATE 300ML SOLUTION PO ONE ×2 (21:30→22:00)
[2019-10-30] MEDS ORDERED: SODIUM CHLORIDE 0.9% INJ 3ML FLUSH IVF SCH (22:00)
[2019-10-30] MEDS: SODIUM CHLORIDE 0.9% INJ 3ML FLUSH IVF SCH (22:00)
[2019-10-31] VITALS (7 sets, daily range): BP systolic 134–181; BP diastolic 76–98
[2019-10-31] MEDS: SODIUM CHLORIDE 0.9% INJ 3ML FLUSH IVF SCH (01:55)
[2019-10-31] MEDS: ENOXAPARIN 30MG/0.3ML SYR SUBCUT SCH ×2 (01:55→09:11)
[2019-10-31 07:03] LABS: BASOPHILS % 1.5 % (0.0-2.0); EOSINOPHILS % 2.5 % (0.0-5.0); HEMATOCRIT. 41.1 % (36.0-48.0); LYMPHOCYTES % 40.1 % (20.0-50.0); MEAN CORPUSCULAR HEMOGLOBIN 28.8 pg (28.0-32.0); MEAN CORPUSCULAR VOLUME 91.3 fL (81.0-99.0); MEAN PLATELET VOLUME 9.8 fl (7.4-10.4); MONOCYTES % 14.7 % (2.0-8.0); NEUTROPHILS % 41.2 % (40.0-76.0); PLATELET 215 x1000/uL (130-400)
[2019-10-31 07:09] LABS: CHLORIDE 115 mEq/L (98-107)
[2019-10-31] MEDS ORDERED: BISACODYL 10MG SUPP PR SCH (09:30)
== END 2019-10-31 15:00 | disposition home or self-care (01) | DRG 392 ==
LOC: ER 14:21 → 8WST 20:46 → EDBEDREQTM 20:54 → EDBEDREQ 20:54 → ENRESERV 23:03
PROVIDERS: ADMIT Internal Medicine; ATTEND Internal Medicine
DX: K59.00 Constipation, unspecified (principal); C79.51 Secondary malignant neoplasm of bone; C50.919 Malignant neoplasm of unspecified site of unspecified female breast; D25.9 Leiomyoma of uterus, unspecified; I10 Essential (primary) hypertension; K44.9 Diaphragmatic hernia without obstruction or gangrene; K80.20 Calculus of gallbladder without cholecystitis without obstruction; K82.8 Other specified diseases of gallbladder; N20.0 Calculus of kidney; N81.10 Cystocele, unspecified; Z85.3 Personal history of malignant neoplasm of breast; Z86.73 Personal history of transient ischemic attack (TIA), and cerebral infarction without residual deficits; Z90.12 Acquired absence of left breast and nipple; Z92.21 Personal history of antineoplastic chemotherapy; Z88.8 Allergy status to other drugs, medicaments and biological substances; Z88.2 Allergy status to sulfonamides; Z79.899 Other long term (current) drug therapy
CPT/HCPCS: 36415; 74176; 80053; 85025; 93005; 99285; J1170; J1650; J2060; J2270; J2405; J7030

== ENCOUNTER 2019-11-13 10:21 | Inpatient (IN) | payer MEDICARE, MEDICAID ==
[~2019-11-13] VITALS: Ht 165.1 cm; Wt 90.3 kg
[2019-11-13] MEDS ORDERED: SODIUM CHLORIDE 0.9% 1,000 ML IV ONE (10:31)
[2019-11-13 11:02] LABS: BASOPHILS % 1.3 % (0.0-2.0); EOSINOPHILS % 3.4 % (0.0-5.0); HEMATOCRIT. 38.2 % (36.0-48.0); HEMOGLOBIN. 12.4 g/dL (12.0-16.0); LYMPHOCYTES % 24.2 % (20.0-50.0); MEAN CORPUSCULAR VOLUME 89.2 fL (81.0-99.0); MEAN PLATELET VOLUME 9.2 fl (7.4-10.4); MONOCYTES % 8.1 % (2.0-8.0); PLATELET 333 x1000/uL (130-400); RED BLOOD CELL COUNT 4.28 mill/uL (4.2-5.4); RED CELL DISTRIBUTION WIDTH 18.6 % (11.6-14.6)
[2019-11-13] MEDS ORDERED: MORPHINE SULFATE 4 MG/ML CPJ (NOT FOR IM USE) IV STA ×2 (11:08→14:51)
[2019-11-13] MEDS ORDERED: ONDANSETRON HCL 4MG/2ML INJ IV STA ×2 (11:08→14:51)
[2019-11-13 11:09] LABS: CHLORIDE 110 mEq/L (98-107)
[2019-11-13 11:12] LABS: PROTHROMBIN TIME 10.3 sec (9.6-11.0)
[2019-11-13] MEDS ORDERED: KETOROLAC 15MG/ML VIAL IV ONE (11:15)
[2019-11-13] MEDS ORDERED: POTASSIUM CHLORIDE 20MEQ TABLET SR PO ONE (11:45)
[2019-11-13] MEDS ORDERED: CLOPIDOGREL 75MG TABLET PO ONE (12:30)
[2019-11-13] MEDS ORDERED: ASPIRIN 325MG TABLET PO ONE (12:30)
[2019-11-13] MEDS ORDERED: CLONIDINE 0.1MG TABLET PO PRN (15:45)
[2019-11-13] MEDS ORDERED: DOCUSATE SODIUM 100MG CAPSULE PO PRN (15:45)
[2019-11-13] MEDS ORDERED: ACETAMINOPHEN 325MG TABLET PO PRN (15:45)
[2019-11-13] MEDS ORDERED: HYDROCODONE/ACETAMINOPHEN 5/325MG TABLET PO PRN (15:45)
[2019-11-13] MEDS ORDERED: ONDANSETRON HCL 4MG/2ML INJ IV PRN (15:45)
[2019-11-13] MEDS ORDERED: MAGNESIUM/ALUMINUM HYDROXIDE/SIMETHICONE 30ML UDC PO PRN (15:45)
[2019-11-13] MEDS: GABAPENTIN 400MG CAPSULE PO SCH (17:11)
[2019-11-13] MEDS: APIXABAN 5 MG TABLET PO SCH (17:11)
[2019-11-14] VITALS (7 sets, daily range): BP systolic 120–166; BP diastolic 59–86
[2019-11-14 06:44] LABS: BASOPHILS % 0.5 % (0.0-2.0); EOSINOPHILS % 3.6 % (0.0-5.0); HEMATOCRIT. 35.5 % (36.0-48.0); HEMOGLOBIN. 11.5 g/dL (12.0-16.0); LYMPHOCYTES % 18.9 % (20.0-50.0); MEAN CORPUSCULAR HEMOGLOBIN 28.9 pg (28.0-32.0); MEAN CORPUSCULAR VOLUME 89.1 fL (81.0-99.0); MEAN PLATELET VOLUME 9.4 fl (7.4-10.4); MONOCYTES % 11.3 % (2.0-8.0); NEUTROPHILS % 65.7 % (40.0-76.0); PLATELET 300 x1000/uL (130-400); RED BLOOD CELL COUNT 3.99 mill/uL (4.2-5.4); RED CELL DISTRIBUTION WIDTH 18.4 % (11.6-14.6)
[2019-11-14 06:53] LABS: CHLORIDE 113 mEq/L (98-107)
[2019-11-14 07:04] LABS: LDL CHOLESTEROL 65 mg/dL (5-100)
[2019-11-14 07:05] LABS: HDL CHOLESTEROL 53 mg/dL (40-59)
[2019-11-14] MEDS: GABAPENTIN 400MG CAPSULE PO SCH ×3 (09:28→17:33)
[2019-11-14] MEDS: APIXABAN 5 MG TABLET PO SCH ×2 (09:28→17:33)
[2019-11-14] MEDS: AMLODIPINE 5MG TABLET PO SCH ×2 (09:28→09:31)
[2019-11-14] MEDS: LOSARTAN POTASSIUM 50 MG TABLET PO SCH (10:30)
[2019-11-14] MEDS: LETROZOLE 2.5MG TABLET PO SCH (13:30)
[2019-11-14] MEDS: KETOROLAC 15MG/ML VIAL IV PRN ×2 (13:42→20:34)
[2019-11-14] MEDS: ATORVASTATIN CALCIUM 40MG TABLET PO SCH (20:33)
[2019-11-15] VITALS: BP 115/55
[2019-11-15 04:00] VITALS: BP 118/79
[2019-11-15] MEDS: KETOROLAC 15MG/ML VIAL IV PRN ×3 (05:36→20:26)
[2019-11-15 08:00] VITALS: BP 152/91
[2019-11-15] MEDS: LOSARTAN POTASSIUM 50 MG TABLET PO SCH ×2 (09:00→10:15)
[2019-11-15] MEDS: APIXABAN 5 MG TABLET PO SCH (09:44)
[2019-11-15] MEDS: GABAPENTIN 400MG CAPSULE PO SCH ×3 (09:44→17:43)
[2019-11-15] MEDS: LETROZOLE 2.5MG TABLET PO SCH (10:22)
[2019-11-15 12:00] VITALS: BP 127/73
[2019-11-15] MEDS: NIFEDIPINE XL 30MG TAB PO SCH ×2 (13:38→20:25)
[2019-11-15] MEDS: ALPRAZOLAM 0.5 MG TABLET PO PRN (13:38)
[2019-11-15 16:00] VITALS: BP 139/85
[2019-11-15 20:00] VITALS: BP 132/76
[2019-11-15] MEDS: ATORVASTATIN CALCIUM 40MG TABLET PO SCH (20:25)
[2019-11-16] VITALS: BP 113/68
[2019-11-16] MEDS: ALPRAZOLAM 0.5 MG TABLET PO PRN ×2 (00:18→08:56)
[2019-11-16] MEDS: KETOROLAC 15MG/ML VIAL IV PRN (02:33)
[2019-11-16 04:00] VITALS: BP 122/77
[2019-11-16 08:00] VITALS: BP 111/75
[2019-11-16] MEDS: LOSARTAN POTASSIUM 50 MG TABLET PO SCH (08:56)
[2019-11-16] MEDS: NIFEDIPINE XL 30MG TAB PO SCH (08:56)
[2019-11-16] MEDS: GABAPENTIN 400MG CAPSULE PO SCH ×2 (08:56→12:10)
[2019-11-16] MEDS: APIXABAN 5 MG TABLET PO SCH (08:56)
[2019-11-16] MEDS: LETROZOLE 2.5MG TABLET PO SCH (10:09)
[2019-11-16 12:00] VITALS: BP 121/73
[2019-11-16 13:23] VITALS: BP 121/73
[2019-11-17] MEDS ORDERED: LETROZOLE 2.5MG TABLET PO SCH (09:00)
== END 2019-11-16 14:00 | disposition home health service (06) | DRG 125 ==
LOC: ER 10:21 → EDBEDREQ 12:24 → EDBEDREQTM 12:24 → 5WST 14:47 → EDBEDREQTM 15:05 → EDBEDREQ 15:05 → ENRESERV 20:39
PROVIDERS: ADMIT Hospitalist; ATTEND Hospitalist
DX: H54.62 Unqualified visual loss, left eye, normal vision right eye (principal); C79.9 Secondary malignant neoplasm of unspecified site; D68.69 Other thrombophilia; E44.0 Moderate protein-calorie malnutrition; I48.0 Paroxysmal atrial fibrillation; J44.9 Chronic obstructive pulmonary disease, unspecified; C50.919 Malignant neoplasm of unspecified site of unspecified female breast; E78.5 Hyperlipidemia, unspecified; R00.1 Bradycardia, unspecified; Z72.0 Tobacco use; Z79.01 Long term (current) use of anticoagulants; Z79.899 Other long term (current) drug therapy; Z85.3 Personal history of malignant neoplasm of breast; Z86.711 Personal history of pulmonary embolism; Z86.73 Personal history of transient ischemic attack (TIA), and cerebral infarction without residual deficits; Z90.12 Acquired absence of left breast and nipple; Z92.21 Personal history of antineoplastic chemotherapy; Z88.2 Allergy status to sulfonamides; I95.9 Hypotension, unspecified
CPT/HCPCS: 36415; 71045; 80053; 80061; 82962; 83605; 84443; 84484; 85025; 93005; 97116; 97162; 99291; J1885; J2270; J2405; J7030

== ENCOUNTER 2019-12-10 07:28 | Emergency (ER) | payer MEDICARE, MEDICAID ==
[~2019-12-10] VITALS: Ht 157.5 cm; Wt 73.0 kg
[2019-12-10] MEDS ORDERED: ONDANSETRON HCL 4MG/2ML INJ IV STA (07:45)
[2019-12-10] MEDS ORDERED: MORPHINE SULFATE 4 MG/ML CPJ (NOT FOR IM USE) IV STA (07:45)
[2019-12-10 09:04] LABS: BASOPHILS % 0.8 % (0.0-2.0); EOSINOPHILS % 1.3 % (0.0-5.0); HEMOGLOBIN. 11.2 g/dL (12.0-16.0); LYMPHOCYTES % 24.3 % (20.0-50.0); MEAN CORPUSCULAR HEMOGLOBIN 27.9 pg (28.0-32.0); MEAN CORPUSCULAR VOLUME 87.1 fL (81.0-99.0); MEAN PLATELET VOLUME 9.3 fl (7.4-10.4); MONOCYTES % 5.1 % (2.0-8.0); NEUTROPHILS % 68.5 % (40.0-76.0); PLATELET 352 x1000/uL (130-400); RED BLOOD CELL COUNT 4.02 mill/uL (4.2-5.4); RED CELL DISTRIBUTION WIDTH 18.9 % (11.6-14.6)
[2019-12-10 09:13] LABS: CHLORIDE 114 mEq/L (98-107); PROTHROMBIN TIME 10.8 sec (9.6-11.0)
[2019-12-10 10:40] LABS: CLARITY URINE CLEAR (CLEAR); COLOR URINE DARK YELLOW (YELLOW); KETONES URINE NEGATIVE (NEGATIVE); LEUKOCYTE ESTERASE URINE TRACE (NEGATIVE); NITRITE URINE NEGATIVE (NEGATIVE); OCCULT BLOOD URINE NEGATIVE (NEGATIVE); PH URINE 6.5 (4.5-8.0); PROTEIN URINE 1+ (NEGATIVE); SPECIFIC GRAVITY URINE 1.026 (1.005-1.030)
[2019-12-10] MEDS ORDERED: KETOROLAC 30MG/ML VIAL IV ONE (11:00)
[2019-12-10 11:13] VITALS: BP 128/60
== END 2019-12-10 13:05 | disposition home or self-care (01) ==
LOC: ER 07:39
DX: R10.30 Lower abdominal pain, unspecified (principal); I10 Essential (primary) hypertension; Z86.73 Personal history of transient ischemic attack (TIA), and cerebral infarction without residual deficits
CPT/HCPCS: 36415; 74176; 80053; 81003; 83690; 85025; 85610; 93005; 96374; 96375; 99285; J1885; J2270; J2405

== ENCOUNTER 2019-12-11 13:14 | Emergency (ER) | payer MEDICARE, MEDICAID ==
[~2019-12-11] VITALS: Ht 165.1 cm; Wt 66.0 kg
[2019-12-11] MEDS ORDERED: ACETAMINOPHEN 325MG TABLET PO STA (14:31)
[2019-12-11] MEDS ORDERED: SODIUM CHLORIDE 0.9% 1,000 ML IV ONE (14:45)
[2019-12-11 16:08] LABS: BASOPHILS % 0.6 % (0.0-2.0); EOSINOPHILS % 0.8 % (0.0-5.0); HEMATOCRIT. 35.9 % (36.0-48.0); HEMOGLOBIN. 11.6 g/dL (12.0-16.0); LYMPHOCYTES % 26.3 % (20.0-50.0); MEAN CORPUSCULAR HEMOGLOBIN 28.1 pg (28.0-32.0); MEAN CORPUSCULAR VOLUME 87.2 fL (81.0-99.0); MEAN PLATELET VOLUME 9.2 fl (7.4-10.4); MONOCYTES % 5.5 % (2.0-8.0); NEUTROPHILS % 66.8 % (40.0-76.0); PLATELET 386 x1000/uL (130-400); RED BLOOD CELL COUNT 4.11 mill/uL (4.2-5.4); RED CELL DISTRIBUTION WIDTH 18.9 % (11.6-14.6)
[2019-12-11 16:18] LABS: CHLORIDE 111 mEq/L (98-107)
[2019-12-11 17:12] VITALS: BP 133/77
== END 2019-12-11 17:20 | disposition home or self-care (01) ==
LOC: ER 13:14
DX: R10.30 Lower abdominal pain, unspecified (principal); D64.9 Anemia, unspecified; E78.00 Pure hypercholesterolemia, unspecified; I10 Essential (primary) hypertension; Z98.890 Other specified postprocedural states; Z79.899 Other long term (current) drug therapy; Z88.2 Allergy status to sulfonamides; Z86.73 Personal history of transient ischemic attack (TIA), and cerebral infarction without residual deficits; Z90.12 Acquired absence of left breast and nipple
CPT/HCPCS: 36415; 80053; 83690; 85025; 93005; 96360; 99284; J7030

== ENCOUNTER 2019-12-19 09:07 | Emergency (ER) | payer MEDICARE, MEDICAID ==
[~2019-12-19] VITALS: Ht 177.8 cm; Wt 82.0 kg
[2019-12-19] MEDS ORDERED: MORPHINE SULFATE 4 MG/ML CPJ (NOT FOR IM USE) IV STA (09:25)
[2019-12-19] MEDS ORDERED: ONDANSETRON HCL 4MG/2ML INJ IV STA (09:25)
[2019-12-19 09:48] LABS: EOSINOPHILS % 1.4 % (0.0-5.0); HEMOGLOBIN. 11.8 g/dL (12.0-16.0); LYMPHOCYTES % 28.2 % (20.0-50.0); MEAN CORPUSCULAR HEMOGLOBIN 27.7 pg (28.0-32.0); MEAN CORPUSCULAR VOLUME 87.2 fL (81.0-99.0); MEAN PLATELET VOLUME 8.5 fl (7.4-10.4); MONOCYTES % 11.9 % (2.0-8.0); NEUTROPHILS % 57.5 % (40.0-76.0); PLATELET 307 x1000/uL (130-400); RED BLOOD CELL COUNT 4.24 mill/uL (4.2-5.4); RED CELL DISTRIBUTION WIDTH 19.6 % (11.6-14.6)
[2019-12-19 09:54] LABS: CHLORIDE 112 mEq/L (98-107)
[2019-12-19 09:58] LABS: PROTHROMBIN TIME 10.7 sec (9.6-11.0)
[2019-12-19 11:55] VITALS: BP 131/72
== END 2019-12-19 11:58 | disposition home or self-care (01) ==
LOC: ER 09:07
DX: R10.11 Right upper quadrant pain (principal); I10 Essential (primary) hypertension; E78.00 Pure hypercholesterolemia, unspecified; Z87.440 Personal history of urinary (tract) infections; Z86.73 Personal history of transient ischemic attack (TIA), and cerebral infarction without residual deficits
CPT/HCPCS: 36415; 80053; 83690; 85025; 85610; 93005; 96374; 96375; 99284; J2270; J2405

== ENCOUNTER 2020-04-05 11:36 | Emergency (ER) | payer MEDICARE, MEDICAID ==
[~2020-04-05] VITALS: Ht 162.6 cm; Wt 100.0 kg
[2020-04-05] MEDS ORDERED: MORPHINE SULFATE 4 MG/ML CPJ (NOT FOR IM USE) IV STA (12:05)
[2020-04-05] MEDS ORDERED: ONDANSETRON HCL 4MG/2ML INJ IV ONE (12:15)
[2020-04-05 12:20] LABS: BASOPHILS % 1.1 % (0.0-2.0); EOSINOPHILS % 1.3 % (0.0-5.0); HEMATOCRIT. 32.9 % (36.0-48.0); HEMOGLOBIN. 10.6 g/dL (12.0-16.0); LYMPHOCYTES % 29.8 % (20.0-50.0); MEAN CORPUSCULAR HEMOGLOBIN 26.7 pg (28.0-32.0); MEAN CORPUSCULAR VOLUME 83.1 fL (81.0-99.0); MONOCYTES % 7.2 % (2.0-8.0); NEUTROPHILS % 60.6 % (40.0-76.0); PLATELET 377 x1000/uL (130-400); RED BLOOD CELL COUNT 3.97 mill/uL (4.2-5.4)
[2020-04-05 12:25] LABS: CHLORIDE 108 mEq/L (98-107)
[2020-04-05 12:45] LABS: PLATELET ESTIMATE NORMAL
[2020-04-05 13:05] LABS: PROTHROMBIN TIME 10.7 sec (9.6-11.0)
[2020-04-05] MEDS ORDERED: DOCU-138 MT (13:36)
[2020-04-05] MEDS ORDERED: DOCUSATE SODIUM 100MG CAPSULE PO ONE (13:45)
[2020-04-05] MEDS ORDERED: KETOROLAC 30MG/ML VIAL IV ONE (13:45)
[2020-04-05 13:47] LABS: CLARITY URINE CLOUDY (CLEAR); COLOR URINE YELLOW (YELLOW); KETONES URINE NEGATIVE (NEGATIVE); LEUKOCYTE ESTERASE URINE 3+ (NEGATIVE); NITRITE URINE NEGATIVE (NEGATIVE); OCCULT BLOOD URINE NEGATIVE (NEGATIVE); PH URINE 6.5 (4.5-8.0); PROTEIN URINE TRACE (NEGATIVE); SPECIFIC GRAVITY URINE 1.014 (1.005-1.030)
[2020-04-05 13:49] VITALS: BP 109/60
[2020-04-15] MEDS ORDERED: GABA-533 MT (03:19)
[2020-04-15] MEDS ORDERED: APIX5TAB MT (03:19)
[2020-04-15] MEDS ORDERED: NIFE20CA PO (03:19)
== END 2020-04-05 15:16 | disposition home or self-care (01) ==
LOC: ER 11:38
DX: K80.20 Calculus of gallbladder without cholecystitis without obstruction (principal); I10 Essential (primary) hypertension; J98.11 Atelectasis; Z85.830 Personal history of malignant neoplasm of bone; Z87.891 Personal history of nicotine dependence
CPT/HCPCS: 36415; 74176; 80053; 81003; 83690; 85025; 85610; 87086; 93005; 96374; 96375; 99284; J1885; J2270; J2405

== ENCOUNTER 2020-04-12 11:59 | Emergency (ER) | payer MEDICARE, MEDICAID ==
[~2020-04-12] VITALS: Ht 162.6 cm; Wt 94.0 kg
[~2020-04-12 11:59] MED LIST changes: +DOCU-138 MT
[2020-04-12] MEDS ORDERED: TRAMADOL HCL/ACETAMINOPHEN 37.5/325MG TABLET PO ONE (12:15)
[2020-04-12] MEDS ORDERED: ONDANSETRON HCL 4MG/2ML INJ IM STA (13:55)
[2020-04-12 14:07] VITALS: BP 126/66
[2020-04-15] MEDS ORDERED: GABA-533 MT (03:19)
[2020-04-15] MEDS ORDERED: NIFE20CA PO (03:19)
[2020-04-15] MEDS ORDERED: APIX5TAB MT (03:19)
== END 2020-04-12 14:09 | disposition home or self-care (01) ==
LOC: ER 11:59
DX: M19.011 Primary osteoarthritis, right shoulder (principal); M19.221 Secondary osteoarthritis, right elbow; M79.641 Pain in right hand; I10 Essential (primary) hypertension; C50.919 Malignant neoplasm of unspecified site of unspecified female breast; C79.51 Secondary malignant neoplasm of bone; Z79.899 Other long term (current) drug therapy; Z88.2 Allergy status to sulfonamides
CPT/HCPCS: 96372; 99284; J2405; 73080; 73130